=== PATIENT | female | born 1930 | race Caucasian/White ===

== ENCOUNTER 2018-11-19 16:54 | Inpatient (IN) | payer MEDICAID, OTHER ==
[~2018-11-19] VITALS: Ht 154.9 cm; Wt 46.0 kg
[~2018-11-19 16:54] MED LIST: CAPT25TA3 PO; CAPT50TA3 PO; DOCU-144 PO; THIA100T10 PO; TRAM50TA PO
[2018-11-19] MEDS ORDERED: SOD CHLORIDE 0.9% 500 ML IV STA (17:29)
[2018-11-19] MEDS ORDERED: morphine 2 MG INJ IV STA (17:29)
[2018-11-19] MEDS ORDERED: ONDANSETRON 4 MG INJ IV STA (17:29)
[2018-11-19] MEDS ORDERED: LIDOCAINE/MYLANTA 40 ML BTL PO STA (17:31)
[2018-11-19] MEDS ORDERED: ONDANSETRON 4 MG INJ IV PRN ×2 (19:00→21:00)
[2018-11-19] MEDS ORDERED: ACETAMINOPHEN 325 MG TAB PO PRN (19:00)
[2018-11-19 20:33] VITALS: Ht 154.9 cm; Wt 46.0 kg
[2018-11-19] MEDS ORDERED: ALBUTEROL/IPRATROPIUM (NEB) 3 ML AMP HHN PRN (21:00)
[2018-11-19] MEDS ORDERED: NACL 0.9% 3 ML SYG IV SCH (21:00)
[2018-11-19] MEDS ORDERED: morphine 2 MG INJ IV PRN (21:00)
[2018-11-19 21:52] VITALS: BP 179/79; PULSE 96; RESP 16
[2018-11-19] MEDS: PIPER-TAZO 3.375 GM IV (PMX) 100 ML IVPB SCH (22:55)
[2018-11-19] MEDS: DEXTROSE 5%-0.45% NACL 1,000 ML IV SCH (22:55)
[2018-11-19] MEDS: FAMOTIDINE 20 MG INJ IV SCH (22:56)
[2018-11-19 22:59] VITALS: BP 119/54; PULSE 88; RESP 18
[2018-11-20] VITALS (21 sets, daily range): BP systolic 93–118; BP diastolic 38–58; PULSE 75–96; RESP 13–26
[2018-11-20] MEDS: PIPER-TAZO 3.375 GM IV (PMX) 100 ML IVPB SCH ×3 (05:31→21:10)
[2018-11-20] MEDS: DEXTROSE 5%-0.45% NACL 1,000 ML IV SCH ×2 (12:46→21:11)
[2018-11-20] MEDS ORDERED: IOHEXOL 300MG/ML 30 ML BTL ONE (16:26)
[2018-11-20] MEDS ORDERED: INDOMETHACIN 50 MG SUPP PR ONE ×2 (16:30→17:00)
[2018-11-20] MEDS ORDERED: ETOMIDATE 20 MG INJ ONE (17:40)
[2018-11-20] MEDS ORDERED: SUCCINYLCHOLINE CHLORIDE 100 MG/5 ML SYG IV ONE (17:40)
[2018-11-20] MEDS ORDERED: morphine 10 MG INJ ONE (17:41)
[2018-11-20] MEDS ORDERED: ONDANSETRON 4 MG INJ ONE (17:48)
[2018-11-20] MEDS ORDERED: DEXAMETHASONE 4 MG/ML 5 ML INJ ONE (17:48)
[2018-11-20] MEDS ORDERED: CEFAZOLIN 1 GM INJ ONE (17:50)
[2018-11-20] MEDS ORDERED: MIDAZOLAM 1 MG/ML 2 ML INJ IV PRN (18:30)
[2018-11-20] MEDS ORDERED: MEPERIDINE 25 MG INJ IV PRN (18:30)
[2018-11-20] MEDS ORDERED: DIPHENHYDRAMINE 50 MG INJ IV PRN (18:30)
[2018-11-20] MEDS ORDERED: OXYCODONE/ACETAMINOPHEN (5/325) TAB PO PRN ×2 (18:30)
[2018-11-20] MEDS ORDERED: LABETALOL HCL 20MG INJ IV PRN (18:30)
[2018-11-20] MEDS ORDERED: FENTAnyl 50 MCG/ML VIAL IV PRN ×3 (18:30)
[2018-11-20] MEDS ORDERED: hydrALAzine 20 MG INJ IV PRN (18:30)
[2018-11-20] MEDS ORDERED: IPRATROPIUM (NEB) 0.5 MG/2.5 ML AMP HHN PRN (18:30)
[2018-11-20] MEDS ORDERED: ONDANSETRON 4 MG INJ IV PRN (18:30)
[2018-11-20] MEDS ORDERED: HYDROmorphONE 1 MG/5 ML IV SYRINGE IV PRN ×3 (18:30)
[2018-11-20] MEDS ORDERED: ALBUTEROL 0.083% (NEB) 2.5 MG/3 ML AMP HHN PRN (18:30)
[2018-11-20] MEDS ORDERED: EPHEDrine 25 MG/5 ML SYG IV PRN (18:30)
[2018-11-20] MEDS ORDERED: TRIMETHOBENZAMIDE 100 MG/ML VIAL IM PRN (18:30)
[2018-11-20] MEDS: FAMOTIDINE 20 MG INJ IV SCH (21:11)
[2018-11-20] MEDS: HEPARIN 5,000 UNIT/1 ML VIAL SC SCH (21:20)
[2018-11-21 02:52] VITALS: BP 114/55; PULSE 72; RESP 17
[2018-11-21] MEDS: PIPER-TAZO 3.375 GM IV (PMX) 100 ML IVPB SCH ×3 (05:41→21:26)
[2018-11-21] MEDS: DEXTROSE 5%-0.45% NACL 1,000 ML IV SCH ×3 (05:46→21:27)
[2018-11-21 07:33] VITALS: BP 142/63; PULSE 75; RESP 18
[2018-11-21] MEDS: HEPARIN 5,000 UNIT/1 ML VIAL SC SCH ×2 (08:55→20:56)
[2018-11-21 15:16] VITALS: BP 131/59; PULSE 71; RESP 18
[2018-11-21 19:26] VITALS: BP 145/67; PULSE 70; RESP 18
[2018-11-21] MEDS: FAMOTIDINE 20 MG INJ IV SCH (20:54)
[2018-11-22 02:40] VITALS: BP 141/63; PULSE 60; RESP 17
[2018-11-22] MEDS: PIPER-TAZO 3.375 GM IV (PMX) 100 ML IVPB SCH ×3 (06:01→21:46)
[2018-11-22 07:35] VITALS: BP 148/65; PULSE 60; RESP 18
[2018-11-22] MEDS: HEPARIN 5,000 UNIT/1 ML VIAL SC SCH ×2 (07:44→20:40)
[2018-11-22] MEDS: DEXTROSE 5%-0.45% NACL 1,000 ML IV SCH ×2 (11:30→23:24)
[2018-11-22 14:23] VITALS: BP 141/63; PULSE 57; RESP 18
[2018-11-22] MEDS: FAMOTIDINE 20 MG INJ IV SCH (20:37)
[2018-11-22 21:24] VITALS: BP 146/67; PULSE 60; RESP 18
[2018-11-23 02:00] VITALS: BP 143/64; PULSE 60; RESP 18
[2018-11-23] MEDS: PIPER-TAZO 3.375 GM IV (PMX) 100 ML IVPB SCH (06:00)
[2018-11-23 08:00] VITALS: BP 144/66; PULSE 64; RESP 18
[2018-11-23] MEDS: HEPARIN 5,000 UNIT/1 ML VIAL SC SCH ×2 (08:26→20:47)
[2018-11-23] MEDS: DEXTROSE 5%-0.45% NACL 1,000 ML IV SCH (12:41)
[2018-11-23] MEDS ORDERED: ACETAMINOPHEN 325 MG TAB PO PRN ×2 (14:00)
[2018-11-23 14:34] VITALS: BP 143/67; PULSE 64; RESP 16
[2018-11-23] MEDS: PIPER-TAZO 2.25 GM/NS 50 ML IVPB SCH ×2 (14:55→22:03)
[2018-11-23 20:24] VITALS: BP 142/66; PULSE 58; RESP 16
[2018-11-23] MEDS: FAMOTIDINE 20 MG INJ IV SCH (20:45)
[2018-11-24] VITALS (15 sets, daily range): BP systolic 90–168; BP diastolic 46–74; PULSE 16–72; RESP 16–24
[2018-11-24] MEDS: DEXTROSE 5%-0.45% NACL 1,000 ML IV SCH ×3 (00:55→12:27)
[2018-11-24] MEDS: PIPER-TAZO 2.25 GM/NS 50 ML IVPB SCH ×3 (06:08→22:10)
[2018-11-24] MEDS: POTASSIUM CHLORIDE 100 ML IVPB SCH ×3 (07:41→12:27)
[2018-11-24] MEDS: HEPARIN 5,000 UNIT/1 ML VIAL SC SCH ×2 (07:42→21:04)
[2018-11-24] MEDS ORDERED: PROPOFOL 20 ML ONE (14:57)
[2018-11-24] MEDS ORDERED: ROCURONIUM 50 MG INJ ONE (14:57)
[2018-11-24] MEDS ORDERED: CEFAZOLIN 1 GM INJ ONE (14:57)
[2018-11-24] MEDS ORDERED: ROPIVACAINE 0.2% 20 ML VIAL ONE (14:58)
[2018-11-24] MEDS ORDERED: FENTAnyl 50 MCG/ML VIAL ONE (14:58)
[2018-11-24] MEDS ORDERED: BUPIVACAINE 0.25%/EPI (SDV) 10 ML INJ ONE (15:08)
[2018-11-24] MEDS ORDERED: LIDOCAINE 1% (MPF) 30 ML INJ ONE (15:08)
[2018-11-24] MEDS ORDERED: hydrALAzine 20 MG INJ ONE (16:18)
[2018-11-24] MEDS ORDERED: DEXAMETHASONE 4 MG/ML 5 ML INJ ONE (16:28)
[2018-11-24] MEDS ORDERED: ONDANSETRON 4 MG INJ ONE (16:28)
[2018-11-24] MEDS ORDERED: SUGAMMADEX SODIUM 200 MG/2 ML VIAL IV ONE (16:28)
[2018-11-24] MEDS ORDERED: LABETALOL HCL 20MG INJ ONE (16:29)
[2018-11-24] MEDS ORDERED: HYDROmorphONE 1 MG/5 ML IV SYRINGE IV PRN ×2 (16:30)
[2018-11-24] MEDS ORDERED: ONDANSETRON 4 MG INJ IV PRN ×2 (16:30→17:30)
[2018-11-24] MEDS ORDERED: hydrALAzine 20 MG INJ IV PRN (16:30)
[2018-11-24] MEDS ORDERED: DIPHENHYDRAMINE 50 MG INJ IV PRN (16:30)
[2018-11-24] MEDS ORDERED: ALBUTEROL 0.083% (NEB) 2.5 MG/3 ML AMP HHN PRN (16:30)
[2018-11-24] MEDS ORDERED: LABETALOL HCL 20MG INJ IV PRN (16:30)
[2018-11-24] MEDS ORDERED: EPHEDrine 25 MG/5 ML SYG IV PRN (16:30)
[2018-11-24] MEDS ORDERED: MEPERIDINE 25 MG INJ IV PRN (16:30)
[2018-11-24] MEDS ORDERED: OXYCODONE/ACETAMINOPHEN (5/325) TAB PO PRN (16:30)
[2018-11-24] MEDS ORDERED: IPRATROPIUM (NEB) 0.5 MG/2.5 ML AMP HHN PRN (16:30)
[2018-11-24] MEDS ORDERED: FENTAnyl 50 MCG/ML VIAL IV PRN ×2 (16:30)
[2018-11-24] MEDS: D5W-0.45 NACL + KCL 20 MEQ 1,000 ML IV SCH (18:29)
[2018-11-24] MEDS: FAMOTIDINE 20 MG INJ IV SCH (21:03)
[2018-11-24] MEDS ORDERED: HYDROmorphONE 0.5 MG/0.5 ML SYG IV PRN (22:00)
[2018-11-25 01:05] VITALS: BP 141/67; PULSE 75; RESP 17
[2018-11-25] MEDS: D5W-0.45 NACL + KCL 20 MEQ 1,000 ML IV SCH ×2 (03:29→05:08)
[2018-11-25] MEDS: PIPER-TAZO 2.25 GM/NS 50 ML IVPB SCH ×3 (06:04→21:50)
[2018-11-25 07:30] VITALS: BP 165/71; PULSE 79; RESP 18
[2018-11-25] MEDS: HEPARIN 5,000 UNIT/1 ML VIAL SC SCH ×2 (08:54→21:53)
[2018-11-25 09:26] VITALS: BP 155/67; PULSE 73; RESP 20
[2018-11-25 14:10] VITALS: BP 162/67; PULSE 75; RESP 18
[2018-11-25 14:48] VITALS: BP 154/70
[2018-11-25 20:16] VITALS: BP 164/76; PULSE 76; RESP 16
[2018-11-25] MEDS: FAMOTIDINE 20 MG INJ IV SCH (21:50)
[2018-11-26 02:06] VITALS: BP 163/75; PULSE 83; RESP 16
[2018-11-26] MEDS: PIPER-TAZO 2.25 GM/NS 50 ML IVPB SCH ×2 (05:37→13:47)
[2018-11-26 08:15] VITALS: BP 189/81; PULSE 89; RESP 15
[2018-11-26] MEDS: HEPARIN 5,000 UNIT/1 ML VIAL SC SCH (08:44)
[2018-11-26 14:21] VITALS: BP 161/76; PULSE 91; RESP 16
[2018-11-26 18:45] VITALS: BP 99/55; PULSE 95; RESP 15
== END 2018-11-26 16:55 | disposition home or self-care (01) | DRG 418 ==
LOC: E/R 16:54 → 2NE 18:42
PROVIDERS: ADMIT Internal Medicine; ATTEND Internal Medicine
PROC: 0F798DZ Dilation of Common Bile Duct with Intraluminal Device, Via Natural or Artificial Opening Endoscopic (ICD-10-PCS; 2018-11-20)
PROC: 0FC98ZZ Extirpation of Matter from Common Bile Duct, Via Natural or Artificial Opening Endoscopic (ICD-10-PCS; 2018-11-20)
PROC: BF10YZZ Fluoroscopy of Bile Ducts using Other Contrast (ICD-10-PCS; 2018-11-20)
PROC: 0FT44ZZ Resection of Gallbladder, Percutaneous Endoscopic Approach (ICD-10-PCS; principal; 2018-11-24 16:00)
DX: K80.62 Calculus of gallbladder and bile duct with acute cholecystitis without obstruction (principal); E44.0 Moderate protein-calorie malnutrition; Z68.1 Body mass index [BMI] 19.9 or less, adult; N17.9 Acute kidney failure, unspecified; E87.6 Hypokalemia; I12.9 Hypertensive chronic kidney disease with stage 1 through stage 4 chronic kidney disease, or unspecified chronic kidney disease; N18.9 Chronic kidney disease, unspecified; D64.9 Anemia, unspecified
CPT/HCPCS: 36415; 71045; 74181; 74330; 76705; 80048; 80053; 80076; 81001; 81003; 82043; 82962; 83690; 83735; 84100; 84155; 84300; 85025; 87086; 88304; 93005; 94664; 96374; 96375; C2617; J0360; J0690; J1100; J1170; J1644; J2270; J2405; J2543; J2795; J3010; J3480; J7040; J7042; Q9967